=== PATIENT | female | born 1995 | race African-American/Black ===

== ENCOUNTER 2018-01-04 08:38 | Emergency (ER) | payer BC ==
[~2018-01-04] VITALS: Ht 170.2 cm; Wt 171.8 kg
[2018-01-04 11:24] VITALS: BP 120/72
== END 2018-01-04 11:38 | disposition home or self-care (01) ==
LOC: EME 08:38
DX: O9A.213 Injury, poisoning and certain other consequences of external causes complicating pregnancy, third trimester (principal); S40.012A Contusion of left shoulder, initial encounter; M54.5 Low back pain; W10.9XXA Fall (on) (from) unspecified stairs and steps, initial encounter; O24.414 Gestational diabetes mellitus in pregnancy, insulin controlled; Z79.4 Long term (current) use of insulin; Z3A.31 31 weeks gestation of pregnancy
CPT/HCPCS: 73030; 99281; 99284